=== PATIENT | male | born 1975 | race Caucasian/White ===

== ENCOUNTER 2024-07-25 08:30 | Emergency (ER) | payer OTHER, SELFPAY ==
[2024-07-25 08:39] VITALS: BP 148/94; PULSE 63; RESP 15; TEMP 36.4; O2SAT 99
--- NOTE | 2024-07-25 08:45 | DI.RAD_ITS ---
Exam(s) XR SHOULDER RT COMPLETE 2+V EXAM: XR SHOULDER RT COMPLETE 2+V CLINICAL HISTORY: posterior pain s/p fall. TECHNIQUE: 2D digital imaging was performed of the right shoulder. Five images were obtained. AP, Grashey, Y-view and axillary views were obtained. COMPARISON: No exams were available for comparison FINDINGS: BONES: No acute fracture is present. No bony destructive lesion is seen. JOINTS: No dislocation present. There are mild degenerative changes seen at the acromioclavicular marianela nt. The glenohumeral joint is unremarkable. SOFT TISSUE: Normal. IMPRESSION: No acute fracture or dislocation. DATA REPOSITORY: RADIATION DOSE DELIVERED:
--- NOTE | 2024-07-25 08:48 | ED.GENADUL_ITS ---
Discharge Plan Disposition Patient Disposition: Home Condition: Stable Discharge Details Clinical Impression: Sprain of right shoulder, Cervical sprain Primary Care Provider: Scar Huffman ED Provider: Deven Andrews Home Meds and New Rx's Prescriptions: Continued esomeprazole magnesium [Nexium] 20 mg capsule,delayed release(DR/EC) 20 mg PO DAILY Discharge Instructions Additional Instructions: you can take 1000 mg of acetaminophen and 600 mg of ibuprofen every 6 hours as needed If you are not improving in 1 to 2 weeks follow-up with your primary care provider If you are using the sling make sure to take your arm out a few times a day to move your joints If you feel more ill, have severe worsening pain or new pain such as chest pain or abdominal pain return to the emergency department for reevaluation. HPI General Mode of arrival: ambulatory . Date/Time Provider Initiated Documentation: 07/25/24 08:32 . Limitations to Documentation: no limitations . Information obtained by: patient . History of Present Illness 49 year old M presents to the emergency department with the chief complaint of posterior right shoulder pain, described as moderate, Quality is described as aching, and is localized to the right and upper extremity. Patient reports no radiation. Patient started experiencing this day(s) (1) and it has been constant. Rest improves symptom(s), Movement worsens symptoms . Patient notes denies chest pain, nausea/vomiting and shortness of breath. Patient did receive the following treatments prior to arrival, none Related Data Home Medications ?Medication ?Instructions ?Recorded ?Confirmed esomeprazole magnesium 20 mg 20 mg PO DAILY 07/25/24 07/25/24 capsule,delayed release (Nexium) Allergies Allergy/AdvReac Type Severity Reaction Status Date / Time Penicillins Allergy Mild Other (See Verified 07/25/24 08:43 Comment) Sulfa (Sulfonamide Allergy Mild Other (See Verified 07/25/24 08:43 Antibiotics) Comment) General Stated Complaint: Orthopedic BRIAN: 4 Review of Systems All systems reviewed & are unremarkable except as noted in HPI and below Constitutional Constitutional: Denies chills, Denies fever(s) and Denies weakness Cardiovascular Cardiovascular: Denies chest pain and Denies dyspnea Respiratory Respiratory: Denies cough and Denies dyspnea Gastrointestinal Gastrointestinal: Denies abdominal pain, Denies nausea and Denies vomiting Neurologic Neurologic: Denies weakness Exam Const General: no acute distress Orientation: alert HENMT Head: normal to inspection Ears: external ears normal General nose exam: external nose normal Mouth: moist mucous membranes Eyes General: appearance normal, both eyes and all related structures Neck Neck: normal visual inspection Resp Effort & Inspection: normal respiratory effort and able to speak in complete sentences Cardio Rate: regular rate Skin General skin exam: no rashes or lesions noted Neuro General: patient alert and patient oriented x3 Extrem General: normal to inspection, full ROM and capillary refill normal Psych Mental Status: mental status grossly normal Course Vital Signs Vital signs: Vital Signs Temperature 36.4 C 07/25/24 08:39 Pulse 63 07/25/24 08:39 Respiratory Rate 15 07/25/24 08:39 Blood Pressure 148/94 H 07/25/24 08:39 Pulse Oximetry 99 07/25/24 08:39 Temperature 36.4 C 07/25/24 08:39 Temperature Source Temporal Artery Scan 07/25/24 08:39 Pulse 63 07/25/24 08:39 Respiratory Rate 15 07/25/24 08:39 Respiratory Effort Normal 07/25/24 08:41 Blood Pressure 148/94 H 07/25/24 08:39 Blood Pressure Position Sitting 07/25/24 08:39 Pulse Oximetry 99 07/25/24 08:39 Oxygen Delivery Method Room Air 07/25/24 08:39 Oxygen Flow Rate 0 07/25/24 08:39 Pain Level 8 07/25/24 08:44 Medical Decision Making 49-year-old male comes in after he slipped on ice yesterday and fell from standing height onto his right shoulder. He denies loss of consciousness, no chest pain abdominal pain or back pain. He denies any neck pain though he is tender in the right lateral neck over the paraspinous muscles. He has te nderness over the posterior right shoulder with no visible or palpable deformities. He does have full range of motion of the shoulder though he does have pain in the posterior shoulder when doing so. No tenderness in the humerus, elbow, forearm wrist or hand and has full range of motion of the elbow wrist and hand. Intact pulses distally. No midline T or L-spine tenderness and he has no signs of trauma to the head, no chest or abdominal tenderness. Suspect strain to contusions but will obtain CT of the C-spine to exclude fracture and also right shoulder x-rays. X-ray and CT show no acute findings, no fractures. Patient is stable, no new pain elsewhere. No midline C-spine tenderness has full range of motion of his neck do not feel MRI of the cervical spine indicated. He is stable for discharge, sling provided for comfort and advised if not improving in 1 to 2 weeks to follow-up with his PCP. Return precautions given Differential Diagnosis Differential Diagnosis: Fracture, contusion, sprain Quality:SDOH Health Related Social Needs: No Data to Display PFSH All Active Problems (Updated 07/25/24 @ 09:52 by Deven Andrews MD) Cervical sprain (Acute) Sprain of right shoulder (Acute) Environmental allergies (Acute) Chronic rhinitis (Acute) Adverse effect of other ieck-evqgsi-qbmq drugs, initial encounter (Acute) Nasal valve collapse (Acute) Hypertrophy of nasal turbinates (Acute) Deviated nasal septum (Acute) Nasal congestion (Acute) Allergic rhinitis due to allergen (Acute) Nasal polyps (Acute) Social History Smoking/Tobacco Use Status: Former Tobacco Use Smoking risk assessment performed?: Yes Alcohol Intake: current Alcohol type: beer Drug use: Never Substance use type: does not use PAWSS Have you Been Recently Intoxicated or Drunk Within the Last 30 days?: No Have you Ever Experienced Previous Episodes of Alcohol Withdrawal?: No Have you ever Experienced Withdrawal Seizures?: No Have you ever Experienced Delirium Tremens(DT)s?: No Have you ever undergone Alcohol Rehabilitation Treatment (i.e, inpt ot outpatient treatment programs)?: No Have you ever Experienced Blackouts?: No Have you ever Combined Alcohol with other Downers within the last 90 days?: No Result: 0
[2024-07-25] MEDS: Ibuprofen 600 MG TAB PO (08:49)
--- OUTSIDE RECORDS SUMMARY | 2024-07-25 09:15 | XMS_ITS | Encounter Summary ---
Author Organization [facility] Address [address] [place] [address] Care Team Providers Care Breaker Engineer Name Role Phone Scar Huffman APRN Primary Care Provider [phone] Reason for Visit * Test (Routine) - Authorization Not Required Specialty Diagnoses / Procedures Referred By Remi martinez Referred To Contact General Surgery Diagnoses Colon cancer screening Procedures COLONOSCOPY Roman Cordero MD Phone: tel: fax: Referral ID Status Reason Start Date Expiration Date Visits Requested Visits Authorized [id number] Authorization Not Required 1 1 Encounter Details Date Type Department Care Team (Late st Contact Info) Description 06/04/2020 9:13 EDT - 06/04/2020 23:59 EDT Hospital Encounter [facility] Endoscopy - [address] [id number] Roman Cordero MD [address] [place] [address], [address] [place] [address] Discharge Disposition: Home or Self Care Social History Tobacco Use Types Packs/Day Years Used Date Smoking Tobacco: Former Smokeless Tobacco: Never Alcohol Use Standard Drinks/Week Comments Yes 40 (1 standard drink = 0.6 oz pu re alcohol) Interpersonal Safety Answer Date Record ed Physically Hurt Never 04/29/2020 Verbally Threaten Not on file 04/29/2020 Sex and Gender Information Value Date Recorded Sex Assigned at Not on file Legal Sex Male 15:58 EDT Gender Identity Male 06/02/2020 17:59 EDT Sexual Orientation Not on file COVID-19 Exposure Response Date Recorded In the last month, have you been in contact with someone who was confirmed or suspected to have Coronavirus / COVID-19? No / Unsure 06/04/2020 9:32 EDT documented as of this encounter Last Filed Vital Signs Vital Sign Reading Time Taken Comments Blood Pressure 111/80 06/04/2020 1032 EDT Pulse - - Temperature 36.4 ??C (97.5 ??F) 06/04/2020 1023 EDT Respiratory Rate 16 06/04/2020 1032 EDT Oxygen Saturation 93% 06/04/2020 1032 EDT Inhaled Oxygen Concentration - - Weight 74.8 kg (165 lb) 06/04/2020927 EDT Height 170.2 cm (5' 7) 06/04/2020927 EDT Body Mass Index 25.84 06/04/2020927 EDT documented in this encounter Medications at Time of Discharge esomeprazole (NEXIUM) 20 mg capsule Take 20 mg by mouth daily. documented as of this encounter Discharge Disposition Disposition Code Departure Means Destination Home or Self [facility] documented in this encounter H&P Notes * Roman Cordero MD - 06/04/2020 1000 EDT Endoscopy Sedation for Procedure History & Physical Date: 06/04/2020 Time: 9:32 Location: Planned Procedure: Chief Complaint/Indications for Procedure: Colon cancer screening History Previous Complication with Sedation and/or Anesthesia? Allergies: Allergies Allergen Reactions ??? Penicillins ??? Sulfa (Sulfonamide Antibiotics) Current Medications: Current Outpatient Medications Medication ??? esomeprazole (NEXIUM) 20 mg capsule No current facility-administered medications for this encounter. Past Medical History: Past Medical History: Diagnosis Date ??? Diverticulitis ??? GERD (gastroesophageal reflux disease) Social History: History reviewed. No pertinent surgical history. Social History Tobacco Use ??? Smoking status: Former Smoker ??? Smokeless tobacco: Never Used Substance Use Topics ??? Alcohol use: Yes Alcohol/week: 40.0 - 48.0 standard drinks Types: 40 - 48 Cans of beer per week Family History: Family History Problem Relation Age of Onset ??? Thyroid Cancer/Nodule Father Review of Systems as pertinent: Physical Exam Vital Signs: BP 134/71 Temp (!) 35.3 ??C (95.5 ??F) (Tympanic) Resp 20 Ht 170.2 cm (67) Wt74.8 kg (165 lb) SpO2 100% BMI 25.84 kg/m?? Heart Examination: Cardiac Regularity: Regular Respiratory Examination: Respiratory Pattern: Regular Breath Sounds Right: Clear Breath Sounds Left: Clear Abdominal Examination: Soft, non-tender, bowel sounds normal, no masses, no organomegaly Additional physical exam related to the proposed procedure, patient activity, disease state and treatment as pertinent: Assessment Previous complications with sedation or anesthesia?: No Airway Concerns: None/NA Anesthesia Classification: ASA 2 Plan: Proceed with sedation for procedure Fasting Time: Date of Last Liquid: 06/04/20 Time of Last Liquid: 0500 Date of Last Solid: 06/02/20 Time of Last Solid: 1700 Patient Appropriate Candidate for Planned Sedation?: Yes Roman Cordero MD 06/04/2020 9:32 documented in this encounter Plan of Treatment Not on file documented as of this encounter Procedures Procedure Name Priority Date/Time Associated Diagnosis Comments COLONOSCOPY PROCEDURE Routine 06/04/2020 10:14 EDT SURGICAL PATHOLOGY Routine 06/04/2020 9: 51 EDT documented in this encounter Results * COLONOSCOPY PROCEDURE (06/04/2020 10:14 EDT) Anatomical Region Laterality Modality Endoscopy Narrative 06/04/2020 10:14 EDT Procedure Performed Colonoscopy - hot snare polypectomy x 2. clipping of asc colon polyp Indications for Exam Screening Colonoscopy. Procedure Technique A physical exam was performed. Informed consent was obtained from the patient after explaining all the risks (perforation, bleeding, missed findings, injury to nearby organs, infection and adverse effects to the medicine), benefits and alternatives to the procedure which the patient appeared to understand and so stated. ??The patient was connected to the monitoring devices and placed in the left lateral position. Continuous oxygen was provided with a nasal cannula and IV medicine administered thru an indwelling cannula. After adequate sedation was achieved, a digital exam was performed and the colonoscope introduced into the rectum and advanced under direct visualization to the cecum. The cecum was identified by visual landmarks. The endoscope was subsequently removed slowly while carefully examining the color, texture, anatomy, and integrity of the mucosa on withdrawal. Retroflexion was performed in the rectum: Yes. The patient was subsequently transferred to the recovery area in satisfactory condition. Rectal Exam:Normal Estimated Blood Loss: None Complications None Medications Demerol ??50 mg Versed 2 mg I was in continuous face to face attendance during the administration of moderate sedation services that were monitored by an independent trained observer who had no other duties during the procedure. ??Total sedation time was 9 ??minutes. [place] Bowel Prep Right Colon: 3 ? Transverse Colon: 3 ? Left Colon: 3 ?Total: 9 Findings 9 mm polyp asc colon hot snare polypectomy and clipping 3 mm recto sig polyp. ??hot snare Diagnosis 9 mm polyp asc colon hot snare polypectomy and clipping 3 mm recto sig polyp. ??hot snare sigmoid diverticula Recommendations Repeat colonoscopy in 5 years. Follow biopsy results. This electronic signature authenticates all electronic and/or handwritten documentation, including orders, generated by the signer during the episode of care contained in this record. 06/04/2020 10:14:36 AM By Roman Cordero us Roman Cordero MD GI PROCEDURE ORDERABLES Final Result * SURGICAL PATHOLOGY (06/04/2020 9:51 EDT) Final Diagnosis A. COLON, ASCENDING, POLYP, BIOPSY: - Tubulovillous adenoma. - Submucosal histiocytic inflammation with hemosiderin deposition, consistent with regeneration/repa ir. B. COLON, RECTOSIGMOID, POLYP, BIOPSY: - Tubular adenoma. 06/06/2020 14:48 EDT [facility] Attestation By the signature below, the attending physician certifies that they have 1) personally conducted a gross and/or microscopic examination of the described specimen(s), and/or personally interpreted the results of laboratory testing of the described specimen(s), and 2) personally rendered or confirmed the above diagnosis. 06/06/2020 14:48 T [facility] at 1448 Clinical History Not listed 06/06/2020 14:48 EDT [facility] Gross Description A. Received in formalin labelled with proper patient identification (initials L, V) and ascending colon polyp is an aggregate of lopez-pink polypoid tissue fragments (1.0 x 1.0 x 0.5 cm). The larger tissues are sectioned and the specimen is entirely submitted in A1 and A2. B. Received in formalin labelled with proper patient identification (initials L, V) and recto-sigmoid polyp is a lopez-pink tissue (0.4 x 0.3 x 0.3 cm). The specimen is entirely submitted in B1. PHILIP GRIGSBY(ASCP) 06/04/2020 12:05 06/06/2020 14:48 EDT [facility] Performing Lab [facility] 06/06/2020 14:48 EDT [facility] Scanned Images 06/06/2020 14:48 EDT [facility] Tissue POLYP OF COLON / Unknown 06/04/2020 9:51 EDT 06/04/2020 10:44 EDT Tissue specimen (specimen) POLYP OF COLON / Unknown 06/04/2020 10:08 EDT 06/04/2020 10:44 EDT Roman Cordero MD PATHOLOGY ORDERABLES Final Re sult [facility] [address] [place] [address] documented in this encounter Visit Diagnoses Not on filedocumented in this encounter Administered Medications Inactive Administered Medications - up to 3 most recent administrations Medication Order MAR Action Action Date Dose Rate Site lactated ringers (LR) infusion at 75 mL/hr, intravenous, CONTINUOUS, Starting on Tue06/04/20 at 1000, Until 06/07/20 at 0207, Routine New Bag 06/04/2020 9:37 EDT 75 mL/hr meperidine (PF) (DEMEROL) injection intravenous, PRN, Starting on Tue06/04/20 at 1000, Until Tue06/04/20 at 1000, Routine Given 06/04/2020 10:00 EDT 50 mg midazolam (MDV) (VERSED) injection intravenous, PRN, Starting on Tue06/04/20 at 1000, Until 06/04/20 at 1000, Routine Given 06/04/2020 10:00 EDT 2 mg documented in this encounter Discontinued Medications Medication Sig Discontinue Reason Start Date End Da te polyethylene glycol (GOLYTELY) 236-22.74-6.74 -5.86 gram suspension Patient to follow one time directions sent from Dr Cordero office. 05/30/2020 06/04/2020 documented as of this encounter Orders Medications Ordered That Anjum ht Not Have Been Administered Count Last Ordered Date First Ordered Date diphenhydrAMINE (BENADRYL) injection 25 mg 1 06/04/2020 lactated ringers (LR) infusion 1 06/04/2020 lidocaine (PF) 10 mg/mL (1 % ) injection 2 mg 2 06/04/2020 ondansetron (PF) (ZOFRAN) injection 2-4 mg 1 06/04/2020 sodium chloride 0.9 % (flush) flush 3 mL 1 06/04/2020 documented in this encounter Care Teams Breaker Engineer Relationship Specialty Start Date End Date Scar Huffman APRN [address] [place] [address] [address] [place] [address] PCP - General 06/02/20 documented as of this encounter
--- OUTSIDE RECORDS SUMMARY | 2024-07-25 09:15 | XMS_ITS | Encounter Summary ---
Author Organization [facility] Address [address] [place] [address] Care Team Providers Care Ethnology Professor Name Role Phone Unknown, Provider MD Primary Care Provider Unava ilable Reason for Visit * Reason Comments New Patient Visit * Consult (Routine) - Receiving Office to Obtain Authorization Specialty Diagnoses / Procedures Referred By Remi martinez Referred To Contact General Surgery Diagnoses Diverticulitis Scar Huffman, RECRUITING INTERN [address] [place] [address] [address] [place] [address] Phone: tel: fax: [facility] [address] [address] Phone: tel: fax: Referral ID Status Reason Start Date Expiration Date Visits Requested Visits Authorized [id number] Receiving Office to Obtain Authorization 1 1 Encounter Details Date Type Department Care Team (Late st Contact Info) Description 05/26/2020 15:45 EDT Telemedicine [facility] [address] [id number] Roman Cordero MD [address] [facility], [address] [place] [id number] Diverticulitis large intestine w/o perforation or abscess w/o bleeding (Primary Dx) Social History Tobacco Use Types Packs/Day Years Used Date Smoking Tobacco: Never Assessed Interpersonal Safety Answer Date Record ed Physically Hurt Never 04/29/2020 Verbally Threaten Not on file 04/29/2020 Sex and Gender Information Value Date Recorded Sex Assigned at Not on file Legal Sex Male 15:58 EDT Gender Identity Male 06/02/2020 17:59 EDT Sexual Orientation Not on file documented as of this encounter Last Filed Vital Signs Vital Sign Reading Time Taken Comments Blood Pressure - - Pulse - - Temperature - - Respiratory Rate - - Oxygen Saturation - - Inhaled Oxygen Concentration - - Weight 76.2 kg (168 lb) 05/26/2020 1546 EDT Height 170.2 cm (5' 7) 05/26/2020 1546 EDT Body Mass Index 26.31 05/26/2020 1546 EDT documented in this encounter Progress Notes * Roman Cordero MD - 05/26/2020 1545 EDT This office note has been dictated. TELEMEDICINE VIDEO VISIT Today's visit was provided through telemedicine video conferencing: The location of the patient : Home The location of the provider: Clinic Exam Room The following staff and their role did participate in today's encounter visit: Roman Cordero MD TELEMEDICINE VIDEO VISIT The concept of ???Telemedicine?? has been described to the patient.? Patient has been informed of the anticipated benefits and possible risks.? Patient understands the information provided regardingtelemedicine, has had the opportunity to ask questions about this information, and all questions have been answered to patient???s satisfaction. Patient consents for the use of telemedicine in his/her medical care and authorizes the transmission of any relevant medical information to providers and their staff involved in patient???s medical or mental health care. This office note has been dictated. documented in this encounter Consult Notes * Roman Cordero MD - 05/26/2020 0701 EDT [facility] GENER[facility] SUR[facility]ERY CONSULTATION - 05/26/2020 REQUESTING PROVIDER: Scar Huffman NP CONSULTING PHYSICIAN: Roman Cordero MD [facility] INDICATION FOR CONSULTATION: Diverticulitis. SUBJECTIVE: The patient is a very healthy 45-year-old gentleman who had an episode of diverticulitis in the summer. A CAT scan was performed, which revealed noncomplicated diverticulitis. The patienthad a 10-day course of antibiotics, but symptoms did not resolve. He had a 5-day course after that,and his symptoms have resolved. The patient states that sometimes when he is constipated, he has some left lower quadrant discomfort, but his constipation has resolved since he is now drinking 4 L offluid a day and taking Metamucil. The patient has no other medical problems and he works out significantly. PHYSICAL EXAM: Not performed. DIAGNOSTIC DATA: The CAT scan images are reviewed. IMPRESSION: Single episode of diverticulitis. PLAN: No need for further management at this time. The patient informed that avoiding constipation may make him feel better and avoid further episodes. Greater than 20 minutes were spent in evaluating this patient and discussing it with him. We will plan screening colonoscopy since he has not had this. Roman Cordero MD, FACS / CF Dictation ID: [id number] cc: Scar Huffman NP, [facility], [address] [place] [address], [facility] [address] [address] documented in this encounter Plan of Treatment Not on file documented as of this encounter Visit Diagnoses Diagnosis Diverticulitis large intestine w/o perforation or abscess w/o bleeding- Primary Diverticulitis of colon (without mention of hemorrhage) documented in this encounter Historical Medications * This list may reflect changes made after this encounter. esomeprazole (NEXIUM) 20 mg capsule Take 20 mg by mouth daily. added in this encounter Care Teams Ethnology Professor Relationship Specialty Start Date End Date Unknown, Provider, PCP - General 03/14/20 06/01/20 documented as of this encounter
--- OUTSIDE RECORDS SUMMARY | 2024-07-25 09:15 | XMS_ITS | Encounter Summary ---
Author Organization [facility] Address [address] [place] [address] Care Team Providers Care Farm Butcher Name Role Phone Unavailable Primary Care Provider Unavailabl e Reason for Visit * (Routine) - Receiving Office to Obtain Authorization Specialty Diagnoses / Procedures Referred By Remi martinez Referred To Contact Procedures CT OUTSIDE IMAGES BODY Unknown, Provider, MD Referral ID Status Reason Start Date Expiration Date Visits Requested Visits Authorized [id number] Receiving Office to Obtain Authorization 04/29/2020 1 1 Encounter Details Date Type Department Care Team (Latest Contact Info) Description 03/11/2020 - 03/11/2020 23:59 EDT Hospital Encounter [facility] Radiology - Main [place] [address] [place] [address] Discharge Disposition: Home or Self Care Social History Tobacco Use Types Packs/Day Years Used Date Smoking Tobacco: Never Assessed Sex and Gender Information Value Date Recorded Sex Assigned at Not on file Legal Sex Male 15:58 EDT Gender Identity Male 06/02/2020 17:59 EDT Sexual Orientation Not on file documented as of this encounter Discharge Disposition Disposition Code Departure Means Destination Home or Self Care documented in this encounter Plan of Treatment Not on file documented as of this encounter Procedures Procedure Name Priority Date/Time Associated Diagnosis Comments CT OUTSIDE IMAGES BODY Routine 04/29/2020 12:39 EDT documented in this encounter Results * CT OUTSIDE IMAGES BODY (04/29/2020 12:39 EDT) Leela CHOSPENCERMARY ELLEN - 04/29/2020 12:39 EDT This is a non-reportable exam. us Provider Unknown MD LYNCH OTHER IMAGING ORDERABLES Final Result [facility] documented in this encounter Visit Diagnoses Not on filedocumented in this encounter
--- OUTSIDE RECORDS SUMMARY | 2024-07-25 09:15 | XMS_ITS | Encounter Summary ---
Author Organization [facility] Address [address] [place] [address] Care Team Providers Care Odd Jobs Day Worker Name Role Phone Unknown, Provider Primary Care Provider Scar Spencer APRN Primary Care Provider [phone] Encounter Details Date Type Department Care Team (Late st Contact Info) Description 03/14/2020 Lab Requisition [facility] Pathology & Laboratory Medicine - [address] [address] Michael Zurita, DO [address] [place] [id number] Encounter for other general examination Social History Tobacco Use Types Packs/Day Years Used Date Smoking Tobacco: Never Assessed Sex and Gender Information Value Date Recorded Sex Assigned at Not on file Legal Sex Male 15:58 EDT Gender Identity Male 06/02/2020 17:59 EDT Sexual Orientation Not on file documented as of this encounter Plan of Treatment Not on file documented as of this encounter Procedures Procedure Name Priority Date/Time Associated Diagnosis Comments QUANTIFERON TB GOLD PLUS Today 03/14/2020 13:00 EDT Encounter for other general examination documented in this encounter Results * QUANTIFERON TB GOLD PLUS (03/14/2020 13:00 EDT) Pathologist [facility] Quantiferon Interpretation Negative Negative 03/17/2020 13:17 EDT [facility] Comment: No interferon-gamma response to M. tuberculosis antigens was detected. ??Infection with M. tuberculosis is unlikely. A single negative result does not exclude infection with M. tuberculosis. ??In patients at high risk for M. tuberculosis infection, a second test should be considered in accordance with the 2017 ATS/IDSA/CDC Clinical Practice Guidelines for Diagnosis of Tuberculosis in Adults and Children. [Virgil BERRY et. al. Clin. Infect. Dis. 2017:64 (2) ??: 111-115]. Results were obtained with the Qiagen QuantiFERON TB Gold Plus YANY. TB1 Ag minus Nil 0.00 IU/ml 03/17/20 13:17 EDT [facility] TB2 Ag minus Nil 0.00 IU/mL 03/17/20 13:17 EDT [facility] Blood VENOUS BLOOD / Unknown 03/14/2020 13:00 EDT 03/14/2020 15:59 EDT Narrative [facility] - 03/17/2020 13:17 EDT Results were obtained with the Qiagen QuantiFERON-TB Gold Plus YANY. Michael Zurita DO CHEMISTRY & BLOOD GAS ORDERABLES Final Result [facility] [address] [place] [address] documented in this encounter Visit Diagnoses Diagnosis Encounter for other general examination documented in this encounter Care Teams Odd Jobs Day Worker Relationship Specialty Start Date End Date Unknown, Provider, PCP - General 03/14/20 06/01/20 Scar Huffman APRN [address] [place] [address] [address] [place] [address] PCP - General 06/02/20 documented as of this encounter
--- OUTSIDE RECORDS SUMMARY | 2024-07-25 09:15 | XMS_ITS | Clinical Summary ---
Author Organization [facility] Address [address] [place] [address] Care Team Providers Care Extension Clerk Name Role Phone Scar Huffman Jay PAREDES Primary Care Provider Allergies Active Allergy Reactions Criticality Noted Date Comments Penicillins 05/26/2020 Sulfa (Sulfonamide Antibiotics) 04/30 Medications esomeprazole (NEXIUM) 20 mg capsule Take 20 mg by mouth daily. Active Medical History Medical History Date Comments GERD (gastroesophageal reflux disease) Diverticulitis Family History Medical History Relation Comments Thyroid Cancer/Nodule Father Relation Status Comments Father Social History Tobacco Use Types Packs/Day Years [...] 17:59 EDT Sexual Orientation Not on file Obstetrics History Last Filed Vital Signs Vital Sign Reading Time Taken Comments Blood Pressure 111/80 06/04/2020 1032 EDT Pulse - - Temperature 36.4 ??C (97.5 ??F) 06/04/2020 1023 EDT Respiratory Rate 16 06/04/2020 1032 EDT Oxygen Saturation 93% 06/04/2020 1032 EDT Inhaled Oxygen Concentration - - Weight 74.8 kg (165 lb) 06/04/2020 0928 EDT Height 170.2 cm (5' 7) 06/04/2020927 EDT Body Mass Index 25.84 06/04/2020927 EDT Plan of Treatment Health Maintenance Due Date Last Done Comments Hepatitis C Screen 1974 Hepatitis B Vaccine (1 of 3 - 19+ 3-dose series) 03/21 Cologuard (Colon Cancer Screening) 2019 FIT Test (Colon Cancer Screening) 2019 Sigmoidoscopy (Colon Cancer Screening) 2019 COVID-19 Vaccine ( season) 2024 Colonoscopy (Colon Cancer Screening) 06/04/202502/2020 Colorectal Cancer Screening 06/04/2025 Procedures Procedure Name Priority Date/Time Associated Diagnosis Comments COLONOSCOPY PROCEDURE Routine 06/04/2020 10:14 EDT from Last 3 Months or Most Recently Relevant to Health Maintenance Results * COLONOSCOPY PROCEDURE (06/04/2020 10:14 EDT) [...] procedure. ??Total sedation time was 9 ??minutes. [place]ien Bowel Prep Right Colon: 3 ? Transverse [...] record. 06/04/2020 10:14:36 AM By Roman Cordero Roman Cordero MD GI PROCEDURE ORDERABLES Final Result from Last 3 Months or Most Recently Relevant to Health Maintenance Care Teams Extension Clerk Relationship Specialty Start Date End Date Scar Huffman APRN [address] [place] [address] [address] [place] [address] PCP - General 06/02/20
--- OUTSIDE RECORDS SUMMARY | 2024-07-25 09:15 | XMS_ITS | Encounter Summary ---
Author Organization [facility] Address [address] [place] [address] Care Team Providers Care Risk Advisor Name Role Phone Unknown, Provider Primary Care Provider Scar Spencer APRN Primary Care Provider [phone] Encounter Details Date Type Department Care Team (Late st Contact Info) Description 03/14/2020 Lab Requisition [facility] Pathology & Laboratory Medicine - Main [address] [address] Michael Zurita, [address] [address] Encounter for other general examination Social History [...] Procedure Name Priority Date/Time Associated Diagnosis Comments SYPHILIS SEROLOGY Today 03/14/2020 13: 00 EDT Encounter for other general examination documented in this encounter Results * SYPHILIS SEROLOGY (03/14/2020 13:00 EDT) Syphilis Serology Negative Negative 03/17/2020 11:26 EDT [facility] Blood VENOUS BLOOD / Unknown Non-Lab Collect / Unknown 03/14/2020 13:00 EDT 03/14/2020 16:02 EDT Michael Zurita DO IMMUNOLOGY AND SEROLOG Y ORDERABLES Final Result [facility] [address] [place] [address] documented in this encounter Visit Diagnoses Diagnosis Encounter for other general examination documented in this encounter Care Teams Risk Advisor Relationship Specialty Start Date End Date Unknown, Provider, PCP - General 03/14/20 06/01/20 Scar Huffman APRN [address] [place] [address] [address] [place] [address] PCP - General 06/02/20 documented as of this encounter
--- OUTSIDE RECORDS SUMMARY | 2024-07-25 09:15 | XMS_ITS | Encounter Summary ---
Author Organization [facility] Address [address] [place] [address] Care Team Providers Care Calenderer Name Role Phone Unknown, Provider Primary Care Provider Unava ilable Encounter Details Date Type Department Care Team (Late st Contact Info) Description 05/30/2020 Orders Only [facility] Surgery - Main [address] [address] Ellie Watson, RN [address] [place] [address] Social History Tobacco Use Types Packs/Day Years Used Date Smoking Tobacco: Never Assessed Interpersonal Safety Answer Date Record ed Physically Hurt Never 04/29/2020 Verbally Threaten Not on file 04/29/2020 Sex and Gender Information Value Date Recorded Sex Assigned at Not on file Legal Sex Male 15:58 EDT Gender Identity Male 06/02/2020 17:59 EDT Sexual Orientation Not on file documented as of this encounter Ordered Prescriptions Prescription Sig Dispense Quantity Refills Last Filled Start Date End Date polyethylene glycol (GOLYTELY) 236-22.74-6.74 -5.86 gram suspension Patient to follow one time directions sent from Dr Cordero office. 1 Bottle 05/30/2020 0 documented in this encounter Plan of Treatment Not on file documented as of this encounter Visit Diagnoses Not on filedocumented in this encounter Care Teams Calenderer Relationship Specialty Start Date End Date Unknown, Provider, PCP - General 03/14/20 06/01/20 documented as of this encounter
--- OUTSIDE RECORDS SUMMARY | 2024-07-25 09:15 | XMS_ITS | Referral Summary ---
Author Organization [facility] Address [address] [place] [address] Care Team Providers Care Radiator Specialist Name Role Phone Scar Huffman Jay PAREDES Primary Care Provider [phone] Allergies Active Allergy Reactions Criticality Noted Date Comments Penicillins 05/26/2020 Sulfa (Sulfonamide Antibiotics) 04/30 Medications esomeprazole (NEXIUM) 20 mg capsule Take 20 mg by mouth daily. Active Social History Tobacco Use Types Packs/Day Years [...] 17:59 EDT Sexual Orientation Not on file Last Filed Vital Signs Vital Sign Reading Time Taken Comments Blood Pressure 111/80 06/04/2020 1032 EDT Pulse - - Temperature 36.4 ??C (97.5 ??F) 06/04/2020 1023 EDT Respiratory Rate 16 06/04/2020 1032 EDT Oxygen Saturation 93% 06/04/2020 1032 EDT Inhaled Oxygen Concentration - - Weight 74.8 kg (165 lb) 06/04/2020 0928 EDT Height 170.2 cm (5' 7) 06/04/2020 0928 EDT Body Mass Index 25.84 06/04/2020 0928 EDT Plan of Treatment Not on file Procedures Procedure Name Priority Date/Time Associated Diagnosis [...] procedure. ??Total sedation time was 9 ??minutes. [place] Bowel Prep Right Colon: 3 ? Transverse [...] Recently Relevant to Health Maintenance Care Teams Radiator Specialist Relationship Specialty Start Date End Date Scar Huffman APRN [address] [place] [address] [address] [place] [address] PCP - General 06/02/20
--- OUTSIDE RECORDS SUMMARY | 2024-07-25 09:15 | XMS_ITS | Encounter Summary ---
Author Organization [facility] Address [address] [place] [address] Care Team Providers Care First Front Ventilator Name Role Phone Unknown, Provider Primary Care Provider Scar Spencer APRN Primary Care Provider [phone] Encounter Details Date Type Department Care Team (Late st Contact Info) Description 03/14/2020 Lab Requisition [facility] Pathology & Laboratory Medicine - Main [address] [address] Michael Zurita, [address] [address] Encounter for other general examination Social History [...] Procedure Name Priority Date/Time Associated Diagnosis Comments CHLAMYDIA/N. GONORRHOEAE AMPLIFIED NUCLEIC ACID Today 03/14/2020 12:40 EDT Encounter for other general examination documented in this encounter Results * CHLAMYDIA/N. GONORRHOEAE AMPLIFIED RNA (03/14/2020 12:40 EDT) Neisseria gonorrhoeae Result Negative Negative 03/17/2020 14:49 EDT [facility] Chlamydia trachomatis Result Negative Negative 03/17/2020 14:49 EDT [facility] Urine URINE / Unknown 03/14/2020 1 2:40 EDT 03/14/2020 20:42 EDT Michael Zurita DO MICROBIOLOGY - GENERAL ORDERABLES Final Result [facility] [address] [place] [address] documented in this encounter Visit Diagnoses Diagnosis Encounter for other general examination documented in this encounter Care Teams First Front Ventilator Relationship Specialty Start Date End Date Unknown, Provider, PCP - General 03/14/20 06/01/20 Scar Huffman APRN [address] [place] [address] [address] [place] [address] PCP - General 06/02/20 documented as of this encounter
--- OUTSIDE RECORDS SUMMARY | 2024-07-25 09:15 | XMS_ITS | Continuity of Care Document ---
Author Organization [facility] Address [address] [place] [address] Care Team Providers Care Seo Associate Name Role Phone Scar Huffman Primary Care Physician Encounter [facility] Date(s): 08/04/23 - 08/04/[address] [address] Discharge Disposition: Home or Self Care Attending Physician: Liz Travis NP Admitting Physician: Liz Travis NP Referring Physician: Liz Travis LOGISTICS TEAM LEADER Allergies, Adverse Reactions, Alerts Substance Reaction Severity Status penicillin Moderate Active penicillins Unknown Active sulfa drugs Unknown Active Immunizations Given and Recorded Vaccine Date Status Refusal Reason hepatitis A-hepatitis B vaccine 04/28/20 Recorded hepatitis A-hepatitis B vaccine 11/14/19 Recorded hepatitis A-hepatitis B vaccine 1 10/16/19 Recorde d typhoid vaccine, live 10/16/19 Recorded typhoid vaccine, live 10/15/19 Recorded tetanus/diphth/pertuss (Tdap) adult/adol 10/05/18 Recorded 1Result Comment: Patient verbalized pain after administration of vaccine. Signs a Medications NexIUM 0 Refill(s) Start Date: 10/25/22 Status: Ordered Problem List Condition Confirmation Course Effective Dates Status H ealth Status Informant Diverticulitis Confirmed 05/28/20 Active Gastroesophageal reflux disease Confirmed Active Encounter for screening for cardiovascular disorders Confirmed Active Sinusitis co-occurrent with nasal polyps Confirmed 04/09/19 Active Tobacco dependence syndrome Confirmed Active Procedures Procedure Date Related Diagnosis Body Site Status Colonoscopy, flexible; with biopsy, single or multiple 1 06/04/20 Completed 19mm polyp asc colon hot snare polypectomy and clipping 3mm recto sig polp hot snare sigmoid diverticula 5 year call back, follow bx results. Results Laboratory List Name Date Amylase Level 08/04/23 Automated Diff 08/04/23 C-Reactive Protein (CRP) 08/04/23 CBC w/ Diff 08/04/23 Comprehensive Metabolic Panel (CMP) 08/04 Lipase Level 08/04/23 Lipid Panel 08/04/23 Most recent to oldest [Reference Range]: 1 WBC [5.0-10.0 x10^3/mcL] 4.6 x10^3/mcL *LOW* (08/04/23 8:23 AM) RBC [4.6-6.0 x10^6/mcL] 4.5 x10^6/mcL *LOW* (08/04/23 8:23 AM) Neutro Auto [40.0-75.0 %] 46.3 % (08/04/23 8:23 AM) Lymph Auto [20.0-50.0 %] 36.1 % (08/04/23 8: AM) [place] Auto [2.0-15.0 %] 11.2 % (08/04/23 8:23 AM) Basophil Auto [0.0-1.0 %] 0.7 % (08/04/23 8:23 AM) BUN [7-18 mg/dL] 11 mg/dL (08/04/23 8: AM) Cholesterol Total [50-200 mg/dL] 218 mg/ dL *HI* (08/04/23 8:23 AM) LDL [0-130 mg/dL] 121 mg/dL (08/04/23 8:23 AM) Glucose Level [74-106 mg/dL] 90 mg/dL (08/04/23 8:23 AM) Potassium Level [3.5-5.1 mmol/L] 4.3 mmo l/L (08/04/23 8:23 AM) MCV [80.0-96.0 fL] 97.8 fL *HI* (08/04/23 8:23 AM) HDL [40-60 mg/dL] 57 mg/dL (08/04/23 8:23 AM) CRP [<=10.0 mg/L] <0.5 mg/L (08/04/23 8:23 AM) AST [15-37 unit/L] 41 unit/L *HI* (08/04/23 8:23 AM) Amylase Level [25-115 unit/L] 68 unit/L (08/04/23 8:23 AM) ALT [16-63 unit/L] 54 unit/L (08/04/23 8:23 AM) MCHC [31.0-35.0 g/dL] 33.6 g/dL (08/04/23 8:23 AM) Sodium Level [136-145 mmol/L] 140 mmol/L (08/04/23 8:23 AM) Hct [41.0-51.0 %] 44.4 % (08/04/23 8:23 AM) Lipase Level [16-77 unit/L] 42 unit/L 1 (08/04/23:23 AM) Triglycerides [0-150 mg/dL] 198 mg/dL *HI* (08/04/23 8:23 AM) Calcium Level [8.5-10.1 mg/dL] 9.2 mg/dL (08/04/23 8:23 AM) Albumin Level [3.4-5.0 g/dL] 3.6 g/dL (08/04/23 8:23 AM) Protein Total [6.4-8.2 g/dL] 6.4 g/dL (08/04/23 8:23 AM) MCH [26.0-32.0 pg] 32.8 pg *HI* (08/04/23 8:23 AM) Neutro Absolute 2.1 x10^3/mcL *NA* (08/04/23 8:23 AM) Bilirubin Total [0.2-1.0 mg/dL] 0.5 mg/d L (08/04/23 8:23 AM) Hgb [14.0-18.0 g/dL] 14.9 g/dL (08/04/23 8:23 AM) Alk Phos [46-146 unit/L] 50 unit/L (08/04/23 8:23 AM) Platelets [130-450 x10^3/mcL] 179 x10^3/ mcL (08/04/23 8:23 AM) CO2 [21-32 mmol/L] 28 mmol/L (08/04/23 8:23 AM) eGFR Non-AA [>=60] 107 (08/04/23 8:23 AM) eGFR AA [>=60] 107 (08/04/23 8:23 AM) Chloride Level [98-107 mmol/L] 104 mmol/ L (08/04/23 8:23 AM) RDW-CV [11.5-14.5 %] 12.1 % (08/04/23 8:23 AM) Imm Gran Auto [0.0-0.9 %] 0.2 % (08/04/23 8:23 AM) Creatinine Level [0.70-1.30 mg/dL] 0.83 mg/dL (08/04/23 8:23 AM) Eos, Auto [1.0-6.0 %] 5.5 % (08/04/23 8:23 AM) 1Interpretive Data: Effective 06/17/22, [facility] has switched to a revised Lipase test.Note new ReferenceRange. Social History Social History Type Response Tobacco Never tobacco user T obacco Use:. Sex Male Patient Care team information Care Team Personnel Name: Scar Huffman LOGISTICS TEAM LEADER Position: Physician Member Role: Primary Care Physician Address: Address: [address] [address]- Care Team Related Persons Name: LA LYNN Address: Home [address] [facility], [id number]
--- OUTSIDE RECORDS SUMMARY | 2024-07-25 09:15 | XMS_ITS | Encounter Summary ---
Author Organization [facility] Address [address] [place] [address] Care Team Providers Care Forestry Tree Pruner Name Role Phone Scar Huffman APRN Primary Care Provider [phone] Encounter Details Date Type Department Care Team (Latest Contact Info) Description 06/04/2020 Travel Social History Tobacco Use Types Packs/Day Years [...] 9:32 EDT documented as of this encounter Plan of Treatment Not on file documented as of this encounter Visit Diagnoses Not on filedocumented in this encounter Care Teams Forestry Tree Pruner Relationship Specialty Start Date End Date Scar Huffman APRN [address] [place] [address] [address] [place] [address] PCP - General 06/02/20 documented as of this encounter
--- NOTE | 2024-07-25 09:17 | DI.CT_ITS ---
Exam(s) CT CERVICAL SPINE WO EXAM: CT CERVICAL SPINE WO CLINICAL HISTORY: pain s/p fall. TECHNIQUE: Imaging Protocol: Axial computed tomography images with coronal and sagittal reformatted images were created and reviewed COMPARISON: No exams were available for comparison FINDINGS: Bones: No acute fracture or subluxation. Age-appropriate degenerative changes are seen in the cervica l spine. There is normal alignment of the cervical spine. Soft Tissues: There is a 1 cm hypodense nodule in the left lobe of the thyroid gland. No follow-up i s recommended. Soft tissues are otherwise unremarkable. Lung Apices: Clear. IMPRESSION: No acute fracture or subluxation in the cervical spine. RADIATION DOSE DELIVERED: 298.71mGy.cm Total DLP 298.71mGy.cm Total DLP DATA REPOSITORY: All CT scans at this facility are submitted to the National Radiology Data Registry (NRDR) Dose Index Registry (DIR) with the [employer] (ACR). RADIATION OPTIMIZATION: All CT scans at this facility use at least one of these dose optimization te chniques: automated exposure control; mA and/or kV adjustment per patient size (includes targeted exa ms where dose is matched to clinical indication); or iterative reconstruction.
[2024-07-25 10:00] VITALS: BP 121/80; PULSE 67; RESP 12; O2SAT 97
== END 2024-07-25 10:00 | disposition home or self-care (01) ==
PROVIDERS: Emergency Provider Emergency Medicine; PCP Nurse Practitioner Family
DX: S43.401A Unspecified sprain of right shoulder joint, initial encounter (principal); S13.4XXA Sprain of ligaments of cervical spine, initial encounter; W00.0XXA Fall on same level due to ice and snow, initial encounter
CPT/HCPCS: 99284; 72125; 73030